=== PATIENT | female | born 1985 | race Caucasian/White ===

== ENCOUNTER → 2016-12-08 | Outpatient (CLI) | payer OTHER ==
[~2016-12-08] MED LIST: CYAN100020; MTR600X PO; OMEG10007 PO; OXYC-57 PO; PRENTAB26 PO
== END | disposition home or self-care (01) ==
LOC: C.LABSPEC 12:43
PROVIDERS: ATTEND Obstetrics & Gynecology
DX: Z34.83 Encounter for supervision of other normal pregnancy, third trimester (principal)

== ENCOUNTER 2017-01-03 04:57 | Inpatient (IN) | payer OTHER ==
[~2017-01-03] VITALS: Ht 167.6 cm; Wt 107.3 kg
[~2017-01-03 04:57] MED LIST changes: -CYAN100020; -OMEG10007 PO
[2017-01-03] MEDS ORDERED: OMEG10007 PO (08:04)
[2017-01-03] MEDS ORDERED: CYAN100020 (08:05)
[2017-01-03 08:07] VITALS: Ht 167.6 cm; Wt 107.3 kg
--- NOTE | 2017-01-03 08:42 | Medical Student: [facility] ---
Med Student History & Physical Date of Service Jan 03, 2017. Chief Complaint AROM, possible induction, post-dates History of Present Illness Source: patient, spouse, clinic records This is a 31yo EDC 01/01/17 by 8-week US on 05/25/16 at 40-2 GA here for AROM and possible induction. She desires but has a default cs date of . She would like an epidural. Patient reports occasional contractions but nothing consistent. Her most recent contractions occurred this AM. Currently no bleeding or fluid leaks. She had a bagel and her vitamins at 630AM this morning. She has had some diarrhea for the past week. Denies cp, sob, n/v, dizziness, blurry vision, constipation, calf tenderness. She has been urinating normally. Last BM was yesterday. BP 118/70 and urine trace/trace today. No sick contacts and no recent illnesses. Her history is significant for anemia of , treated with IV iron. She has a past surgical history of gastric bypass in 2013 requiring a post -op transfusion. GBS neg. Blood type is A+. Antibody neg, Rubella immune, VDRL/RPR nonreactive, HBsAg neg, HIV neg, GC neg. Declined quad and CF screens. She has received the flu and Tdap vaccines. Obstetrical history: after 25 minutes of labor @ 38wks with epidural in 2012, cs with general anesthesia @ 40-2 weeks for face presentation. [employer] history: no history of abnormal pap smears. Remainder of history is noncontributory. Past medical history is significant for gastric bypass surgery in 2013. Medications: PNV w/ iron, vit B12 1000mcg, omega 3 Allergies: penicillins (hives), tetracyclines (pseudotumor cerebri) Social History Smoking Status: Never Smoker Smokeless Tobacco Use: No Alcohol Use: none Drug Use: none Marital Status: Housing status: lives with significant other (2 children ages 2 and 3) Occupational Status: unemployed Allergies Coded Allergies: Tetracyclines (Verified Allergy, Severe, PSEUDOTUMOR REACTION, 01/03/17) PATIENT HAS A PSUEDOTURMOR REACTION TO TETRACYCLINES Penicillins (Verified Allergy, Mild, HIVES, 01/03/17) Home Medications Cyanocobalamin (Vitamin B12) Fish Oil ([place]-3), 1 CAP PO Multivit/Min/Iron/Fol Ac/Pren ( Vitamin), 1 TAB PO DAILY Review of Systems Constitutional: No chills, No fatigue, No fever Eyes: No diplopia, No discharge, No eye pain ENT: No sore throat, No tinnitus Respiratory: No cough, No shortness of breath Cardiovascular: No chest pain, No palpitations Abdomen: + diarrhea, No constipation, No nausea, No pain, No vomiting Musculoskeletal: No calf pain, No muscle pain Genitourinary - Female: No dysuria, No hematuria Neurologic: No numbness/tingling, No paralysis, No weakness Physical Exam General Appearance: WD/WN, no apparent distress Head: normocephalic, atraumatic Eyes: normal inspection, PERRL, EOMI ENT: normal ENT inspection, hearing grossly normal Respiratory/Chest: lungs clear, normal breath sounds, no respiratory distress, no accessory muscle use Cardiovascular: regular rate, rhythm, no gallop, no murmur, normal peripheral pulses Abdomen / GI: non tender, soft, + pertinent finding (low transverse incision from prior cs) Genitourinary - Female: + pertinent finding (cervical exam per Dr. Santos / -2) Extremities: normal inspection, no calf tenderness, normal capillary refill, + pedal edema (2+ to below the knees bilaterally) Neurologic/Psych: alert, normal mood/affect, normal reflexes, oriented x 3 Monitoring External Monitor: Tracing category 1: heart rate 135, moderate variability, accelerations present , present early decelerations, absent variable decelerations, absent late decelerations. Assessment and Plan This is a 31yo EDC 01/01/17 by 8-week US on 05/25/16 at 40-2 GA here for AROM and possible induction. She desires but has a default cs date of . Tracing category 1. Plan: 1. AROM +/- pitocin if needed 2. Place epidural 3. Continue monitoring 4. Type & screen for
[2017-01-03] MEDS ORDERED: LACTATED RINGER'S 1000ML 1,000 ML IV PRN ×2 (09:38→10:58)
[2017-01-03] MEDS ORDERED: LACTATED RINGER'S 1000ML 1,000 ML IV SCH ×2 (09:38→11:30)
[2017-01-03 10:15] LABS: HEMATOCRIT 34.4 % (37-47); MEAN CELL VOLUME 80.6 fL (80-100); MEAN CORPUSCULAR HGB CONC 32.3 g/dl (32-36); MEAN PLATELET VOLUME 8.3 fL (7.4-10.4); PLATELET COUNT 257 K/uL (130-400); RED BLOOD COUNT 4.27 M/uL (4.2-5.4); WHITE BLOOD COUNT 9.73 K/uL (4.8-10.8)
[2017-01-03] MEDS ORDERED: LACTATED RINGER'S 1000ML 500 ML IV PRN ×2 (10:58→12:49)
[2017-01-03] MEDS ORDERED: OXYTOCIN 30 UNITS/500ML NSS IV PRN ×2 (11:00→20:45)
[2017-01-03] MEDS ORDERED: EpHEDrine SULFATE INJ 50 MG/ML AMP ONE (11:34)
[2017-01-03] MEDS ORDERED: BUPIVACAINE 0.25% 30 ML VIAL ONE (11:34)
[2017-01-03] MEDS ORDERED: FENTANYL 2MCG/ML ROPIV 1.25MG/ML 100ML BAG EPI ONE (11:35)
[2017-01-03] MEDS ORDERED: FENTANYL CITRATE INJ 50 MCG/1 ML 2 ML VIAL ONE (11:35)
--- NOTE | 2017-01-03 11:37 | Medical Student: [facility] ---
Medical Student Progress Note Date of Service Jan 03, 2017. Progress Note Labor progress note @ 1125 on 01/03/2017 This is a 31yo EDC 01/01/17 by 8-week US on 05/25/16 at 40-2 GA, GBS neg s/p AROM. Patient was up walking around the unit. She is still having only occasional contractions. Discussed starting a pitocin drip including the r/b/a. The patient agrees and would like to proceed. She will get an epidural prior to starting pitocin. Denies cp, sob, dizziness, n/v, blurry vision, calf tenderness. heart tracing remains Category 1 (HR 150s, moderate variability, present accelerations, present early decelerations) Cervical exam by Dr. Santos /-1. Plan 1. Place epidural, Dr. Joshua notified. 2. IV pitocin 3. Continue monitoring.
[2017-01-03] MEDS ORDERED: NALOXONE HCL INJ 0.4 MG/1 ML VIAL/CARP IV PRN (13:00)
[2017-01-03] MEDS ORDERED: EpHEDrine SULFATE INJ 50 MG/ML AMP IV PRN (13:00)
--- NOTE | 2017-01-03 15:03 | Medical Student: [facility] ---
Medical Student Progress Note Date of Service Jan 03, 2017. Progress Note Labor progress note Time: 1500 Date: 01/03/2017 This is a 31yo EDC 01/01/17 by 8-week US on 05/25/16 at 40-2 GA, GBS neg s/p AROM. Epidural placed and on IV pitocin 1mU/min. Patient comfortable sitting in bed. She does note more numbness on the right side of abdomen and down right leg than compared to the left. Contractions every 3-5 minutes. Denies cp, sob, dizziness, n/v, blurry vision, calf tenderness. heart tracing remains Category 1 (HR 130s, moderate variability, present accelerations, present early decelerations) Cervical exam by Dr. Santos /-. Plan 1. Continue IV pitocin 2. Continue monitoring.
--- NOTE | 2017-01-03 17:13 | Medical Student: [facility] ---
Medical Student Progress Note Date of Service Jan 03, 2017. Progress Note Labor progress note Time: 1630 Date: 01/03/2017 This is a 31yo EDC 01/01/17 by 8-week US on 05/25/16 at 40-2 GA, GBS neg s/p AROM. Comfortable sitting up in bed with epidural and IV pitocin. She has continued numbness on the right side of abdomen and down right leg than compared to the left. Contractions every 3 minutes. Denies cp, sob, dizziness, n /v, blurry vision, calf tenderness. heart tracing remains Category 1 (HR 130s, moderate variability, present accelerations, present early decelerations) IV pitocin 13mU/min Epidural 10ml/hr continuous, 4ml SLICE PLUG CUTTER OPERATOR HELPER, 20min lockout, 22ml/hr max. Cervical exam by Dr. Santos 7+/90/-1. Plan 1. Increase IV pitocin. 2. Continue monitoring.
--- NOTE | 2017-01-03 18:15 | Medical Student: [facility] ---
Medical Student Progress Note Date of Service Jan 03, 2017. Progress Note Labor progress note Time: 1800 Date: 01/03/2017 This is a 31yo EDC 01/01/17 by 8-week US on 05/25/16 at 40-2 GA, GBS neg s/p AROM. Generally comfortable laying on left side with epidural and IV pitocin. She did have a couple contractions with 7/10 pain. Contractions every 2-3 minutes. She has continued numbness on the right side of abdomen and down right leg than compared to the left. Denies cp, sob, dizziness, n/v, blurry vision, calf tenderness. heart tracing remains Category 1 (HR 140s, moderate variability, present accelerations, present early decelerations, absent late decelerations and absent variable decelerations) IV pitocin 13mU/min Epidural 10ml/hr continuous, 4ml ENVIRONMENTAL PROGRAM MANAGER, 20min lockout, 22ml/hr max. Cervical exam 8/100/-1. Plan 1. Hold current IV pitocin rate. 2. Pain management with ENVIRONMENTAL PROGRAM MANAGER. 3. Continue monitoring.
[2017-01-03] MEDS: FENTANYL 2MCG/ML ROPIV 1.25MG/ML 100ML BAG EPI PRN ×2 (18:59→19:34)
--- NOTE | 2017-01-03 20:38 | Medical Student: [facility] ---
Medical Student Delivery Note PRE-DELIVERY DIAGNOSIS: 31yo , 40-2 GA Artificial rupture of membranes Maternal iron deficiency anemia of POST-DELIVERY DIAGNOSIS: same PROCEDURE: and repair of 2nd degree midline perineal laceration ESTIMATED BLOOD LOSS: 300ml FINDINGS: Viable male infant with Apgars of 9 and 9. Baby delivered spontaneously. After suction of nose and mouth, baby gave a loud cry. Placenta delivered via manual extraction and inspected intact. EBL: 300 mL. DESCRIPTION OF DELIVERY: Patient is a 31yo EDC 01/01/17 by 8-week US on at 40-2 GA, GBS neg s/p AROM. The patient had a benign course. Blood type A positive, Rubella immune, VDRL/RPR nonreactive, GC negative, Hep B negative, and GBS negative. On arrival to L&D cervical measurement was 5/80/-[address] Santos. AROM was performed which produced clear fluid. Anesthesia was consulted and epidural was placed. Pitocin was administered. The patient progressed to complete labor. The patient then pushed for 24 minutes. The infant presented in KARYNA position. After the head was delivered, no nuchal cord was noted. The anterior shoulder and rest of the body were delivered easily. Following suction of the mouth and nose, the infant gave a loud cry and was placed on the mother. The cord was clamped and cut by the father. The placenta was delivered by manual extraction. Cord blood was collected for analysis. The placenta was inspected and found to be complete. Cord was observed to have 3 vessels. Inspection of the labia, vagina and perineum revealed 2nd degree midline perineal laceration approx 2cm in length. This laceration was repaired with 3-0 chromic in the standard fashion. Sponges, instruments and needles were counted and correct at the end of delivery. Estimated blood loss 300mL. Mother and baby tolerated the procedure well and both are well and resting.
[2017-01-03] MEDS ORDERED: ACETAMINOPHEN 325 MG TAB PO PRN (20:45)
[2017-01-03] MEDS ORDERED: ACETAMINOPHEN/CODEINE 300/30MG TAB PO PRN ×2 (20:45)
[2017-01-03] MEDS ORDERED: SUPERCREAM 0.870 % 15GM JAR EXT PRN (20:45)
[2017-01-03] MEDS ORDERED: BENZOCAINE 20% AER SPR 82.5 GM CAN EXT PRN (20:45)
[2017-01-03] MEDS ORDERED: LANOLIN OINT EXT PRN ×2 (20:45)
--- NOTE | 2017-01-03 21:12 | Anesthesia Procedure Note ---
Anesthesia Epidural Removal Nt Date & Time Jan 03, 2017 at 21:12 Vital Signs Pain Intensity: 0.0 Notes Mental Status: alert / awake / arousable, participated in evaluation Nausea / Vomiting: adequately controlled Pain: adequately controlled Airway Patency, RR, SpO2: stable & adequate BP & HR: stable & adequate Hydration State: stable & adequate Neuraxial Anesthesia: was administered Anesthetic Complications: no major complications apparent, pt satisfied with anesthetic care Epidural: removed without complications, with tip intact
--- NOTE | 2017-01-03 21:57 | DELIVERY SUMMARY ---
DATE OF OPERATION: 01/03/2017 The patient is a 31-year-old 3, para 2-0-0-2 white female, EDC of 01/01/2014 who presented at 40 and 2/7 weeks for induction of labor. Her first delivery had been vaginal, followed by for a face presentation. The patient had been seen in the office on 01/02 and was noted to be 5 cm dilated. She was requesting induction of labor today. She was brought in, membranes were ruptured for clear fluid. Pitocin augmentation was then started after there was slow initiation of contractions. She received effective epidural analgesia. After she reached full dilation, she pushed effectively over intact perineum for delivery of a viable male . Loose nuchal cord was reduced at the time of delivery. The 's shoulders were delivered after hyperflexion of the hips. Rest of the infant delivered without difficulty. Mouth and nasopharynx were suctioned on the perineum. There was spontaneous crying and moving of all 4 limbs after delivery. Baby was placed on the mother's abdomen for further attention and stimulation. The cord was clamped and cut. The placenta was expressed intact with a 3-vessel cord. A second degree perineal laceration was repaired with 3-0 chromic in the usual fashion. Blood loss was 300 mL. Mother and were doing well after delivery. I attest to the content of the Intraoperative Record and any orders documented therein. Any exceptio ns are noted below.
[2017-01-03 23:30] VITALS: BP 108/64; PULSE 80; TEMP 36.9
[2017-01-04] MEDS: IBUPROFEN 600 MG TAB PO PRN ×4 (02:05→19:58)
[2017-01-04 04:35] VITALS: BP 116/74; PULSE 59; TEMP 37
[2017-01-04 06:40] LABS: HEMATOCRIT 32.8 % (37-47)
--- NOTE | 2017-01-04 06:41 | Medical Student: [facility] ---
Med Student [employer] Progress Nt Date of Service Jan 04, 2017. Subjective conversation w/ patient, chart review, lab review Ambulation: ambulating normally Voiding: no voiding problems Passing Gas: Yes Diet Tolerance: Regular Diet Lochia: Moderate Feeding Type: Breast Feeding Pain: 1/10 Notes: This is a 31yo who is at day 1 after induction of labor for post -dates (40 2/7 weeks). She is doing well today, 1/10 pain, moderate lochia rubra. Passing gas and voiding normally. No BMs. Tolerating normal diet. without issue. No other questions or concerns. Denies cp, sob, n/v , dizziness, blurry vision, calf tenderness. Review of Systems Constitutional: No chills, No fatigue, No fever Respiratory: No cough, No shortness of breath, No wheezing Cardiac: No chest pain, No palpitations Abdomen: No nausea, No vomiting Female : No dysuria, No urinary frequency Objective Vital Signs Date Time Temp Pulse Resp B/P Pulse Ox O2 Delivery O2 Flow Rate FiO2 01/04/17 04:35 37.0 59 18 116/74 Room Air 01/03/17 23:30 Room Air 01/03/17 23:30 36.9 80 18 108/64 Room Air Physical Exam General Appearance: WELL-APPEARING, NO APPARENT DISTRESS Respiratory/Chest: lungs clear, normal breath sounds, no respiratory distress, no accessory muscle use Cardiovascular: regular rate, rhythm, no gallop, no murmur Abdomen: normal bowel sounds, non tender, soft Fundus: Firm, Non-Tender, Relation to Umbilicus (midline 2cm below umbilicus ) Extremities: normal range of motion, non-tender, no calf tenderness H/H 10.7/32.8 this AM Laboratory Results Last 24 Hours Test 01/03/17 09:55 01/04/17 06:20 White Blood Count 9.73 K/uL Red Blood Count 4.27 M/uL Hemoglobin 11.1 g/dL 10.7 g/dL Hematocrit 34.4 % 32.8 % Mean Corpuscular Volume 80.6 fL Mean Corpuscular Hemoglobin 26.0 pg Mean Corpuscular Hemoglobin Concent 32.3 g/dl RDW Standard Deviation 63.1 fL RDW Coefficient of Variation 21.7 % Platelet Count 257 K/uL Mean Platelet Volume 8.3 fL Assessment and Plan Post- Day Number: 1 Continue Routine Care: Assessment: This is a 31yo who is at day 1 after induction of labor for post -dates (40 2/7 weeks), doing well today with no complaints. H/H 10.7/32.8. Plan: 1. Continued care, diet as tolerated, pain management 2. Continue to monitor for ppx depression as patient has a history of ppx depression with both prior pregnancies 3. Continue to monitor H/H as patient has a history of anemia of requiring IV iron supplementation
--- NOTE | 2017-01-04 07:38 | Progress Note ---
Subjective Jan 04, 2017. Subjective conversation w/ patient, physical exam Ambulation: ambulating normally Voiding: no voiding problems Passing Gas: Yes Diet Tolerance: Regular Diet Lochia: Small Feeding Type: Breast Feeding Review of Systems Constitutional: No fever Respiratory: No cough Cardiac: No chest pain Objective Vital Signs Date Time Temp Pulse Resp B/P Pulse Ox O2 Delivery O2 Flow Rate FiO2 01/04/17 04:35 37.0 59 18 116/74 Room Air 01/03/17 23:30 Room Air 01/03/17 23:30 36.9 80 18 108/64 Room Air Physical Exam General Appearance: WELL-APPEARING, NO APPARENT DISTRESS Respiratory/Chest: chest non-tender, lungs clear, normal breath sounds Cardiovascular: regular rate, rhythm, no murmur Abdomen: normal bowel sounds, non tender Fundus: Firm, Non-Tender, Relation to Umbilicus (2 cm below) Extremities: non-tender, no calf tenderness Laboratory Results Last 24 Hours Test 01/03/17 09:55 01/04/17 06:20 White Blood Count 9.73 K/uL Red Blood Count 4.27 M/uL Hemoglobin 11.1 g/dL 10.7 g/dL Hematocrit 34.4 % 32.8 % Mean Corpuscular Volume 80.6 fL Mean Corpuscular Hemoglobin 26.0 pg Mean Corpuscular Hemoglobin Concent 32.3 g/dl RDW Standard Deviation 63.1 fL RDW Coefficient of Variation 21.7 % Platelet Count 257 K/uL Mean Platelet Volume 8.3 fL Assessment and Plan Post- Day#: 1 Continue Routine Care: s/p Day 1 - vital signs reviewed and wnl - Blood type: A+, GBS-, Rubella immune - Patient doing well clinically - Encourage breast feeding, ambulation and control pain with motrin - CONTINUE ROUTINE POST CARE
[2017-01-04 07:40] VITALS: BP 105/67; PULSE 70; TEMP 36.8; O2SAT 98
[2017-01-04] MEDS: PRENATAL VITAMIN TAB PO SCH (08:29)
[2017-01-04] MEDS: DOCUSATE SODIUM 100 MG CAP PO SCH ×2 (08:29→20:28)
[2017-01-04 12:05] VITALS: BP 113/71; PULSE 64; TEMP 36.8; O2SAT 100
[2017-01-04 15:45] VITALS: BP 110/69; PULSE 60; TEMP 36.8
[2017-01-04] MEDS ORDERED: BISACODYL 5 MG TABEC PO SCH (20:00)
[2017-01-04 20:40] VITALS: BP 110/76; PULSE 68; TEMP 36.8
[2017-01-05 00:20] VITALS: BP 112/70; PULSE 52; TEMP 36.8
[2017-01-05] MEDS: IBUPROFEN 600 MG TAB PO PRN ×2 (02:36→08:05)
--- NOTE | 2017-01-05 07:26 | Progress Note ---
Subjective Jan 05, 2017. Subjective conversation w/ patient, physical exam Ambulation: ambulating normally Voiding: no voiding problems Passing Gas: Yes Diet Tolerance: Regular Diet Lochia: Small Feeding Type: Breast Feeding Review of Systems Constitutional: No chills, No fever Respiratory: No cough, No shortness of breath Cardiac: No chest pain, No palpitations Abdomen: No nausea, No pain, No vomiting Objective Vital Signs Date Time Temp Pulse Resp B/P Pulse Ox O2 Delivery O2 Flow Rate FiO2 01/05/17 00:20 36.8 52 18 112/70 Room Air 01/05/17 00:20 Room Air 01/04/17 20:40 36.8 68 20 110/76 Room Air 01/04/17 15:45 Room Air 01/04/17 15:45 36.8 60 16 110/69 Room Air 01/04/17 12:05 36.8 64 18 113/71 100 Room Air 01/04/17 07:40 Room Air 01/04/17 07:40 36.8 70 18 105/67 98 Room Air Physical Exam General Appearance: WELL-APPEARING, NO APPARENT DISTRESS Respiratory/Chest: chest non-tender, lungs clear Cardiovascular: regular rate, rhythm, no murmur Abdomen: normal bowel sounds, non tender, soft Fundus: Firm, Non-Tender, Relation to Umbilicus (3 cm below umbilicus) Extremities: normal range of motion, non-tender, no calf tenderness Assessment and Plan Post- Day#: 2 Continue Routine Care: s/p Day 2 - Vital signs reviewed and wnl - Hgb reviewed 10.7 - Blood type: A+, GBS-, Rubella immune - Pt doing well clinically - Encourage ambulation, monitor and control pain w/motrin prn, resume regular diet, monitor lochia - Encourage breast feeding - Pt counselled on discharge instructions - PATIENT TO BE DISCHARGED TODAY Resident Physician Supervision Note: I interviewed and examined the patient. Discussed with Dr. Rosado and agree with findings and plan as documented in the note. Any exceptions or clarifications are listed here: [None] Documented By: Ines Nieves
--- NOTE | 2017-01-05 07:28 | Discharge Instructions ---
Discharge Instructions Admission Reason for Admission: Induction Discharge Discharge Diagnosis / Problem: Spontaneous vaginal delivery Discharge Goals Goal(s): Routine recovery after delivery Medications Continue Dispensed Medications: supercream, dermaplast, tucks, lansinoh Activity Recommendations Activity Limitations: per Instructions/Follow-up section . Instructions / Follow-Up Instructions / Follow-Up ACTIVITY RECOMMENDATIONS: * Gradual return to full activity over the next 2-3 weeks. * No lifting - nothing heavier than baby over the next 2-3 weeks. * Do not engage in vigorous exercise, sexual activity or sports until cleared by your physician. * Do not drive or operate any motorized equipment until cleared by your physician. * You may shower/bathe daily. MEDICATIONS: For discomfort or pain, you may use Acetaminophen (Tylenol), Ibuprofen (Advil), or Naproxen (Aleve) following the package directions. For constipation you may use Colace following the package directions. BREAST CARE: If you are not breast feeding: * Wear a supportive bra 24 hours a day for one to two weeks. * Avoid stimulating your breasts and nipples as much as possible during the first few weeks after delivery. * When taking a shower, have the warm water hit your back, not breasts. * When your breasts feel full, apply ice packs. Usually three to four times a day helps ease the discomfort. * Take a mild pain medication (Tylenol / Motrin) when you are uncomfortable. If breast feeding: * Use breast milk to lubricate nipples. Lansinoh cream may be used for sore nipples. You do not need to remove cream prior to breast feeding. If using a different brand of cream, check the label for directions regarding removal of cream prior to nursing. * Wear a supportive bra. * If having problems with breasts or breast feeding, call a hr business partner consultant or your health care provider. EPISIOTOMY CARE: After delivery, if you have an episiotomy (stitches), the following steps will ease discomfort and aid healing. * For the first 24 hours after delivery, place ice packs next to your episiotomy to help reduce swelling. * After the first 24 hour-period, sitz baths, either portable or in the tub, are suggested. A shower with a shower arm sprayed over the episiotomy may be comforting. * [place] care should be done after each voiding and bowel movement. Squirt warm water from a plastic bottle over the perineum (region of the body between the anus and urinary opening) and pat dry. * Use Dermoplast to ease discomfort. Shake container. [place] directly over the episiotomy. Place a Tucks on a clean sanitary pad next to your episiotomy. SPECIAL CARE INSTRUCTIONS: When you are discharged from the hospital, it is important for you to follow the instructions listed below: * During the first week at home, you should be able to care for yourself and your baby. In addition, the usual light household activities are encouraged. * Limit your activities to the way you feel. Do not try to clean the house or move furniture. Be sensible. * If you actively engage in sports and have done so up until the time of your delivery, you may resume these activities as soon as you feel able. This may take up to one month or even longer. Use good judgment. * Continue to take your vitamins for at least six weeks after the of your baby. * Your diet need not be limited unless you were on a special diet before your delivery. Breast-feeding mothers need around 2500 calories per day and at least 64-80 ounces of fluid per day (8 to 10 glasses). * You should eat foods from the four major food groups. Crash diets or fad diets are to be avoided. Eating lean meats, fresh fruits and vegetables, low-fat dairy products, high fiber foods and a regular exercise program, will help you get back to your pre- weight without putting your health at risk. * Constipation is sometimes a problem after delivery. Take a mild laxative as needed. If breast feeding, Milk of Magnesia is acceptable to use. You may use a suppository or Fleets enema if no episiotomy. * A daily shower or tub bath is suggested. Be sure to thoroughly and gently dry the perineum. * A bloody vaginal discharge will usually continue until around four weeks post . A small amount of bleeding may continue for as long as six weeks. Vaginal discharge changes from the bright red bleeding after delivery to pink then brownish and finally yellowish-pink before becoming white and disappearing. * Bleeding may increase with activity. Your first period may come in 4-8 weeks. If you are breast feeding, your period may be delayed even longer. * [place] (sex) can begin whenever both you and your partner feel comfortable and do not have any form of genital infection. It is recommended that you wait at least six weeks for internal and external healing to occur. If you have questions, please talk to your health care practitioner. A condom should be used to prevent infection and . * Foreplay, gentle intercourse and lubrication is very important the first several times to prevent pain. A water-based lubricant such as K-Y jelly or Astroglide may be used. * If you have RH negative blood and your baby is RH positive, you will receive RHOGAM by injection prior to discharge. The nurse will give you a card to keep with you that has the date and place that you received RHOGAM after delivery. * During your care, you had a Rubella screen done to check for the presence of rubella antibodies in your blood. If your test was negative, you will receive a Rubella vaccine prior to discharge. This vaccine may cause a fever, soreness at the injection site and flu-like symptoms. If these symptoms persist, notify your health care practitioner. is not advised for one month after a Rubella vaccine. * Verbalizes understanding of car seat law as reviewed with patient nursing. * Car Seat hand-out given and reviewed with patient by nursing. * Shaken baby information reviewed with patient by nursing. Call you doctor if: * Heavy bleeding (saturating several pads an hour) or passing clots the size of your fist. * A fever >101 degrees F (38.3 degrees C) on two occasions four hours apart and /or chills. * Unusual pain in the pelvic or vaginal areas. * "Baby Blues" lasting longer than two weeks. If you have any questions or concerns, call your health care practitioner at . FOLLOW UP VISIT: * Please call the office at to schedule a 6 week examination. It is important you keep this appointment. It is important for you to make arrangements for either yearly or twice yearly check-ups thereafter. Current Hospital Diet Patient's current hospital diet: Regular OB Diet Discharge Diet Recommended Diet: Regular OB Diet Pending Studies Studies pending at discharge: no Medical Emergencies . Who to Call and When: Medical Emergencies: If at any time you feel your situation is an emergency, please call 911 immediately. . Non-Emergent Contact Non-Emergency issues call your: Primary Care Provider, Panel Fitter . . "Provider Documentation" section prepared by Luis Armando Rosado. VTE Core Measure Inpt VTE Proph given/why not?: Treatment not indicated
[2017-01-05 07:40] VITALS: BP 113/73; PULSE 57; TEMP 36.8; O2SAT 98
[2017-01-05] MEDS: PRENATAL VITAMIN TAB PO SCH (08:05)
[2017-01-05] MEDS: DOCUSATE SODIUM 100 MG CAP PO SCH (08:05)
[2017-01-05 12:11] VITALS: BP_DIAS 73; PULSE 57; TEMP 36.8
--- NOTE | 2017-01-08 13:11 | DISCHARGE SUMMARY ---
PRINCIPAL DIAGNOSIS: Intrauterine at 40 weeks, prior section for face presentation. PROCEDURE: Induction of labor and successful vaginal after . HISTORY: The patient is a 31-year-old 3, para 2-0-0-2, white female, EDC of 01/01/2014 who presented at 40 and 2/7 weeks for induction of labor. She had had a vaginal delivery with her first , followed with her second because of a face presentation. She was noted to be dilated to 5 cm on the morning of 01/02/2017. She was brought to the labor unit on 01/03/2017 for induction of labor. Membranes were first ruptured for clear fluid. She was 5 cm at that time. Spontaneous contractions did not start in a timely fashion and Pitocin augmentation was begun. Pitocin was slowly increased until an adequate pattern was achieved. She progressed to full dilation and delivered without complications. She had an uncomplicated course. She remained afebrile throughout her hospital stay, was eating regular diet, voiding without difficulty. She was sent home with the usual instructions. Hemoglobin on admission was 11.1, hematocrit 34.4. First day, hemoglobin was 10.7, hematocrit 32.8.
== END 2017-01-05 13:00 | disposition home or self-care (01) | DRG 775 ==
LOC: C.LD 07:29 → C.OBG 23:20
PROVIDERS: ADMIT Obstetrics & Gynecology; ATTEND Obstetrics & Gynecology
PROC: 0KQM0ZZ Repair Perineum Muscle, Open Approach (ICD-10-PCS; principal; 2017-01-03)
PROC: 10E0XZZ Delivery of Products of Conception, External Approach (ICD-10-PCS; principal; 2017-01-03)
PROC: 10907ZC Drainage of Amniotic Fluid, Therapeutic from Products of Conception, Via Natural or Artificial Opening (ICD-10-PCS; 2017-01-03)
DX: O48.0 Post-term pregnancy (principal); O34.219 Maternal care for unspecified type scar from previous cesarean delivery; O70.1 Second degree perineal laceration during delivery; Z3A.40 40 weeks gestation of pregnancy; Z37.0 Single live birth

== ENCOUNTER → 2017-07-13 | Outpatient (CLI) | payer OTHER ==
[~2017-07-13] MED LIST changes: +CYAN100020; -MTR600X PO; +OMEG10007 PO; -OXYC-57 PO
[2017-07-13 14:39] LABS: BASO % 0.5 %; BASO ABS # 0.03 K/uL (0-0.2); COMPLETE YES; EOS % 1.6 %; HEMATOCRIT 41.5 % (37-47); IG% 0.2 %; LYMPH % 42.1 %; LYMPH ABS # 2.63 K/uL (1.2-3.4); MEAN CELL VOLUME 86.5 fL (80-100); MEAN CORPUSCULAR HEMOGLOBIN 27.5 pg (25-34); MEAN CORPUSCULAR HGB CONC 31.8 g/dl (32-36); MEAN PLATELET VOLUME 9.1 fL (7.4-10.4); MONO % 5.4 %; NEUT % 50.2 %; PLATELET COUNT 313 K/uL (130-400); WHITE BLOOD COUNT 6.24 K/uL (4.8-10.8)
[2017-07-13 15:06] LABS: FERRITIN 4.8 ng/ml (8.0-388.0)
== END | disposition home or self-care (01) ==
LOC: C.LAB1850 12:19
PROVIDERS: ATTEND Internal Medicine Hematology & Oncology
DX: D50.9 Iron deficiency anemia, unspecified (principal)

== ENCOUNTER → 2017-11-22 | Outpatient (CLI) | payer OTHER ==
[2017-11-22 13:19] LABS: BASO % 0.2 %; BASO ABS # 0.02 K/uL (0-0.2); EOS % 1.1 %; HEMATOCRIT 39.9 % (37-47); HEMOGLOBIN 13.9 g/dL (12.0-16.0); IG# 0.03 K/uL (0.00-0.02); LYMPH % 35.5 %; LYMPH ABS # 3.31 K/uL (1.2-3.4); MEAN CELL VOLUME 88.1 fL (80-100); MEAN CORPUSCULAR HEMOGLOBIN 30.7 pg (25-34); MEAN CORPUSCULAR HGB CONC 34.8 g/dl (32-36); MEAN PLATELET VOLUME 8.9 fL (7.4-10.4); MONO ABS # 0.37 K/uL (0.11-0.59); NEUT % 58.9 %; PLATELET COUNT 277 K/uL (130-400); RED CELL DISTRIBUTION WIDTH CV 12.8 % (11.5-14.5); WHITE BLOOD COUNT 9.33 K/uL (4.8-10.8)
== END | disposition home or self-care (01) ==
LOC: C.LAB1850 12:24
PROVIDERS: ATTEND Internal Medicine Hematology & Oncology
DX: D50.9 Iron deficiency anemia, unspecified (principal)